=== PATIENT | female | born 1980 | race African-American/Black ===

== ENCOUNTER 2017-07-16 19:48 | Inpatient (IN) ==
[2017-07-16] MEDS ORDERED: ONDANSETRON 4 MG/2 ML VIAL IV PRN (19:58)
[2017-07-16] MEDS ORDERED: DINOPROSTONE 10 MG VAG.INSERT VAG PRN (19:58)
[2017-07-16] MEDS ORDERED: BUTORPHANOL 1 MG/ML VIAL IV PRN (19:58)
[2017-07-16] MEDS: LACTATED RINGERS 1,000 ML IV SCH (20:24)
[2017-07-16] MEDS: AMPICILLIN INJ 2,000 MG in SODIUM CHLORIDE 0.9% 100 ML IV SCH (20:30)
[2017-07-16 20:34] LABS: Basophils % 0.1 % (0.0-0.8); Eosinophils # 0.1 10*3/uL (0.0-0.87); Eosinophils % 0.6 % (0.00-10.9); Hematocrit 34.4 VOL% (35.7-47.0); Hemoglobin 11.5 GM/DL (12.0-16.0); Immature Granulocytes % 0.7 %; Immature Granulocytes Absolute 0.07 #; Lymphocytes # 3.1 10*3/uL (1.4-4.0); Lymphocytes % 28.9 % (21.3-54.2); Mean Corpuscular HGB Conc 33.4 GM/DL (32-36); Mean Corpuscular Hemoglobin 31 PG (27-34); Mean Corpuscular Volume 92.7 FL (87-102); Mean Platelet Volume 11.2 FL (9.6-12.0); Monocytes # 0.6 10*3/uL (0.11-0.8); Monocytes % 5.9 % (1.7-12.7); Neutrophils # 6.9 10*3/uL (1.4-7.4); Neutrophils % 63.8 % (38.7-73.9); Platelet Count 151 T/CUMM (130-400); Red Blood Count 3.71 MC/CUMM (3.8-5.5); Red Cell Distribution Width 13.2 % (9.3-17.3); White Blood Count 10.7 T/CUMM (4-12)
[2017-07-17] MEDS ORDERED: BUTORPHANOL 2 MG/ML VIAL IV PRN (01:20)
[2017-07-17] MEDS: AMPICILLIN INJ 2,000 MG in SODIUM CHLORIDE 0.9% 100 ML IV SCH (03:32)
[2017-07-17] MEDS ORDERED: diphenhydrAMINE 50 MG/1 ML VIAL IV PRN ×2 (04:37)
[2017-07-17] MEDS ORDERED: ONDANSETRON 4 MG/2 ML VIAL IV PRN ×2 (04:37→13:03)
[2017-07-17] MEDS ORDERED: PROMETHAZINE 25 MG/1 ML VIAL IM PRN (04:37)
[2017-07-17] MEDS ORDERED: hydrOXYzine HCL 25 MG/1 ML VIAL IM PRN (04:37)
[2017-07-17] MEDS ORDERED: ePHEDrine 50 MG/ML AMP IV PRN (04:37)
[2017-07-17] MEDS ORDERED: fentaNYL 2 MCG/ROPIV 0.2% EPID 150 ML EPIDURAL PRN (04:37)
[2017-07-17] MEDS ORDERED: FAMOTIDINE 20 MG/2 ML VIAL IV PRN (04:38)
[2017-07-17] MEDS ORDERED: CITRIC ACID/SODIUM CITRATE 30 ML UDCUP PO PRN (04:38)
[2017-07-17] MEDS: LACTATED RINGERS 1,000 ML IV SCH (05:10)
[2017-07-17] MEDS ORDERED: OXYTOCIN/LR 20 UNIT/1,000 ML BAG IV SCH (06:00)
[2017-07-17] MEDS ORDERED: miSOPROStol 200 MCG TABLET ONE (07:18)
[2017-07-17] MEDS ORDERED: METHYLERGONOVINE 0.2 MG/1 ML AMP ONE (07:18)
[2017-07-17 08:48] LABS: Apearance,Urine CLEAR (Clear); Bilirubin,Urine Negative (Negative); Blood, Urine Negative (Negative); Glucose,Urine (UA) Negative (Negative); Ketones,Urine Negative (Negative); Nitrite,Urine Negative (Negative); Protein,Urine Negative; RBC,Urine 1 /HPF (0-4); Urine Color Yellow (Yellow); Urine Specific Gravity 1.011 (1.001-1.035); WBC,Urine 1 /HPF (0-6)
[2017-07-17] MEDS ORDERED: OXYTOCIN/LR 20 UNIT/1,000 ML BAG IV ONE (11:30)
[2017-07-17] MEDS ORDERED: IBUPROFEN 800 MG TABLET ONE (12:10)
[2017-07-17] MEDS: IBUPROFEN 800 MG TABLET PO PRN ×2 (12:14→20:29)
[2017-07-17] MEDS ORDERED: LACTATED RINGERS 1,000 ML IV SCH (13:03)
[2017-07-17] MEDS ORDERED: ACETAMINOPHEN 325 MG TABLET PO PRN (13:03)
[2017-07-17] MEDS ORDERED: BISACODYL 10 MG SUPP RECTAL PRN (13:03)
[2017-07-17] MEDS ORDERED: IBUPROFEN 800 MG TABLET PO PRN (13:03)
[2017-07-17] MEDS ORDERED: MAGNESIUM HYDROXIDE SUSP 30 ML UDCUP PO PRN (13:03)
[2017-07-17] MEDS: DOCUSATE SODIUM 100 MG CAPSULE PO SCH (20:29)
[2017-07-18 06:18] LABS: Basophils % 0.1 % (0.0-0.8); Eosinophils # 0.1 10*3/uL (0.0-0.87); Eosinophils % 0.5 % (0.00-10.9); Hemoglobin 9.2 GM/DL (12.0-16.0); Immature Granulocytes % 0.8 %; Immature Granulocytes Absolute 0.11 #; Lymphocytes # 2.8 10*3/uL (1.4-4.0); Lymphocytes % 21.9 % (21.3-54.2); Mean Corpuscular HGB Conc 34.1 GM/DL (32-36); Mean Corpuscular Hemoglobin 32 PG (27-34); Mean Corpuscular Volume 93.4 FL (87-102); Mean Platelet Volume 10.6 FL (9.6-12.0); Monocytes # 0.9 10*3/uL (0.11-0.8); Monocytes % 7.2 % (1.7-12.7); Neutrophils % 69.5 % (38.7-73.9); Platelet Count 116 T/CUMM (130-400); Red Blood Count 2.89 MC/CUMM (3.8-5.5); Red Cell Distribution Width 13.2 % (9.3-17.3)
[2017-07-18] MEDS: IBUPROFEN 800 MG TABLET PO PRN ×2 (07:31→23:23)
[2017-07-18] MEDS: DOCUSATE SODIUM 100 MG CAPSULE PO SCH ×2 (08:48→21:01)
[2017-07-18] MEDS: MULTIVITAMIN (PRENATAL) TABLET PO SCH (08:48)
[2017-07-19 07:41] VITALS: BP 142/84
[2017-07-19] MEDS: DOCUSATE SODIUM 100 MG CAPSULE PO SCH (08:37)
[2017-07-19] MEDS: MULTIVITAMIN (PRENATAL) TABLET PO SCH (08:37)
== END 2017-07-19 11:10 | disposition home or self-care (01) | DRG 560 ==
LOC: N.LDOUT 19:48 → N.LD 19:51 → N.OB 07-17 10:31
PROVIDERS: ADMIT Obstetrics & Gynecology; ATTEND Obstetrics & Gynecology